=== PATIENT | female | born 2005 | race Caucasian/White ===

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

== ENCOUNTER → 2024-01-09 | Outpatient (CLI) | payer OTHER ==
--- NOTE | 2024-01-09 15:08 | US ---
EXAMINATION TYPE: US transvaginal DATE OF EXAM: 01/09/2024 COMPARISON: NONE CLINICAL INDICATION: Female, 18 years old with history of R10.31 RIGHT LOWER QUADRANT PAIN; pain TECHNIQUE: Transvaginal (TV EXAM MEASUREMENTS: Uterus: 6.6 x 4.5 x 5.3 cm Endometrial Stripe: .6 cm Right Ovary: 3.4 x 1.5 x 1.5 cm Left Ovary: 3.2 x 1.3 x 1.8 cm 1. Uterus: Retroverted wnl 2. Endometrium: Small amount of fluid seen. 3. Right Ovary: 1.6 cm anechoic area seen 4. Left Ovary: wnl 5. Bilateral Adnexa: wnl 6. Posterior cul-de-sac: wnl Retroverted uterus appears within normal limits. Trace amount of fluid identified within the endometr ial canal. Normal endometrial thickness. Dominant follicular cyst within the right ovary. Left ovary is unremarkable. No free fluid in the posterior cul-de-sac. IMPRESSION: No ultrasound evidence for an acute process.
--- NOTE | 2024-01-09 15:46 | US ---
EXAMINATION TYPE: US abdomen complete DATE OF EXAM: 01/09/2024 COMPARISON: NONE CLINICAL INDICATION: Female, 18 years old with history of R10.31 RIGHT LOWER QUADRANT PAIN; pain TECHNIQUE: Multiple sonographic images of the abdomen are obtained. FINDINGS: EXAM MEASUREMENTS: Liver Length: 12 cm Gallbladder Wall: .2 cm CBD: .5 cm Spleen: 11 cm Right Kidney: 9.8 x 4.4 x 4.1 cm Left Kidney: 9.1 x 4.5 x 4.1 cm PMO CONSULTANT NOTES: Pancreas: wnl Liver: wnl Gallbladder: wnl Evidence for sonographic Lam's sign: no CBD: wnl Spleen: wnl Right Kidney: wnl Left Kidney: wnl Upper IVC: wnl Abd Aorta: wnl The liver is homogenous. The intrahepatic portion of the IVC and proximal abdominal aorta are within normal limits. There is no evidence of cholelithiasis. Common bile duct is unremarkable. The visu alized portions of the pancreas are homogenous. The spleen is unremarkable. Kidneys are symmetric a nd free of hydronephrosis. No renal lesions are seen. IMPRESSION: No ultrasound evidence for an acute process.
== END | disposition home or self-care (01) ==
LOC: RADUSWWP 07:15
PROVIDERS: ATTEND Family Medicine
DX: R10.31 Right lower quadrant pain (principal)
CPT/HCPCS: 76700; 76830

== ENCOUNTER 2024-10-09 09:10 | Day surgery (SDC) | payer OTHER ==
[2024-10-08 11:00] VITALS: BMI 24.0
--- NOTE | 2024-10-09 08:41 | P.GSHP ---
History of Present Illness H&P Date: 10/09/24 CHIEF COMPLAINT: GERD HISTORY OF PRESENT ILLNESS: The patient is a 19-year-old female who presents reports gastroesophageal reflux disease. Upper endoscopy was offered for further evaluation and management. PAST MEDICAL HISTORY: Please see list. PAST SURGICAL HISTORY: Please see list. MEDICATIONS: Please see list. ALLERGIES: Please see list. SOCIAL HISTORY: No illicit drug use FAMILY HISTORY: No reports of Crohn disease or ulcerative colitis. REVIEW OF ORGAN SYSTEMS: CONSTITUTIONAL: No reports of fevers or chills. GI: Denies any blood in stools or constipation. PHYSICAL EXAM: VITAL SIGNS: Stable GENERAL: Well-developed and pleasant in no acute distress. HEENT: No scleral icterus. Extraocular movements grossly intact. Moist buccal mucosa. NECK: Supple without lymphadenopathy. CHEST: Unlabored respirations. Equal bilateral excursions. CARDIOVASCULAR: Regular rate and rhythm. Distal 2+ pulses. ABDOMEN: Soft, nondistended. MUSCULOSKELETAL: No clubbing, cyanosis, or edema. ASSESSMENT: 1. Gastroesophageal reflux disease PLAN: 1. Recommend proceeding with an upper endoscopy Past Medical History Past Medical History: GERD/Reflux Additional Past Medical History / Comment(s): heart defects , vascular ring. PT CURRENTLY HAS A MILD SORE THROAT AND COLD SYMPTOMS-INSTRUCTED TO CALL DR. BRUNO History of Any Multi-Drug Resistant Organisms: None Reported Past Surgical History: No Surgical Hx Reported Additional Past Surgical History / Comment(s): heart defects, vascular ring Past Anesthesia/Blood Transfusion Reactions: No Reported Reaction Smoking Status: Never smoker - Past Family History Mother Family Medical History: No Reported History Medications and Allergies Home Medications Medication Instructions Recorded Confirmed Type Omeprazole 40 mg PO DAILY 10/08/24 10/08/24 History Allergies Allergy/AdvReac Type Severity Reaction Status Date / Time No Known Allergies Allergy Verified 10/08/24 10:52
[~2024-10-09 09:10] MED LIST: LIDOCAINE 1% (10MG/ML) FOR IV START INTRADERMA PRN; ONDANSETRON 4 MG/2 ML VIAL IVP PRN
[2024-10-09] MEDS: IV FLUID CONTINUATION 1,000 ML IV ONE (09:26)
[2024-10-09 09:41] VITALS: TEMP 98.2
[2024-10-09] MEDS: LACTATED RINGERS 1,000 ML IV SCH (09:42)
[2024-10-09] MEDS ORDERED: KETAMINE HCL IN 0.9 % NACL 50 MG/5 ML SYRINGE ONE (09:53)
[2024-10-09] MEDS ORDERED: fentaNYL (PF) 50 MCG/ML 2 ML AMP ONE (09:53)
[2024-10-09] MEDS ORDERED: PROPOFOL 10 MG/ML 20 ML VIAL IV ONE (09:53)
[2024-10-09] MEDS ORDERED: LIDOCAINE 1% INJ 10MG/ML (20 ML MDV) ONE (09:53)
[2024-10-09 10:25] VITALS: RESP 16
[2024-10-09 10:39] VITALS: BP 110/68; PULSE 100
--- NOTE | 2024-10-09 10:49 | P.PCN ---
Date of Procedure: 10/09/24 Description of Procedure: PREOPERATIVE DIAGNOSIS: Gastroesophageal reflux disease Dysphagia History of aortic ring congenital anomaly POSTOPERATIVE DIAGNOSIS: Upper esophageal stenosis Gastritis Gastroesophageal reflux disease with erosive esophagitis OPERATION: Esophagogastroduodenoscopy with rigid dilator over the guidewire 54 Fr with dilation Esophagogastroduodenoscopy with cold forceps biopsies stomach/antrum, esophagus, duodenum SURGEON: Glo Tobar MD ANESTHESIA: MAC. INDICATIONS: The patient is a 19-year-old female who presents with a history of gastroesophageal reflux disease and dysphagia. Benefits and risks of the procedure were described. Informed consent was obtained. DESCRIPTION: The patient was brought into the endoscopy suite and laid in the left lateral decubitus position. After a timeout was confirmed, the procedure was initiated. An Olympus gastroscope was passed into the posterior oropharynx where an upper esophageal stenosis was identified. The scope was passed down to the distal esophagus. To address the upper esophageal stenosis, rigid dilator over guidewire was selected. Next using an Moldovan rigid dilator, a guidewire was placed through the gastroscope. Next the scope was withdrawn. A 54-[place] Zealander rigid Moldovan dilator was passed carefully along the posterior oropharynx to 45 cm and left in place for 2-3 minutes stretch. The dilator was withdrawn including the guidewire. The scope was reentered along the posterior oropharynx with no findings of full- thickness tear of the upper esophageal sphincter. Additional findings below. Within the stomach, gastritis without gastric ulcerations were identified along the body of the stomach with cold forceps biopsies obtained. The lower esophageal valve was evaluated with Hill grade 2 lower esophageal valve. LA grade B erosive esophagitis was identified. No full-thickness injury was encountered. The GI tract was desufflated. The patient tolerated the procedure well. FINDINGS: Upper esophageal stenosis dilated 54-New Zealander rigid dilator Diaphragmatic hiatus at 40 cm from the incisors Squamocolumnar junction 40 cm from the incisors. Gastritis along the gastric body and fundus cold forceps biopsies obtained No acute gastric ulcerations identified. Duodenum with mild duodenitis with biopsies obtained LA grade B erosive esophagitis with biopsies obtained Hill grade 2 lower esophageal valve. RECOMMENDATIONS: Omeprazole 40 mg daily Upper endoscopy as needed Plan - Discharge Summary Discharge Rx Participant: No New Discharge Prescriptions: Continue Omeprazole 40 mg PO DAILY Discharge Medication List Omeprazole 40 mg PO DAILY 10/08/24 [History] Follow up Appointment(s)/Referral(s): Glo Tobar MD [STAFF PHYSICIAN] - 10/21/24 4:30 pm Patient Instructions/Handouts: Esophageal Dilation (DC) Activity/Diet/Wound Care/Special Instructions: Salt water gargle twice daily. Soft diet today. Discharge Disposition: HOME SELF-CARE
--- NOTE | 2024-10-09 14:30 | P.PN ---
Progress Note - Text Progress Note Date: 10/09/24 Patient contacted the bariatric center regarding increased trouble with swallowing. Patient's family advised to come to the emergency room if symptoms progress as discussed prior to bariatric staff.
--- NOTE | 2024-10-09 14:37 | P.PN ---
Progress Note - Text Progress Note Date: 10/09/24 Contacted patient's phone which went to [employer]. Contacted patient's mother who reports that her daughter is very anxious. Patient reports increased swelling as the anesthesia has resolved. I have discussed antibiotics oral liquid form including oral liquid pain medication such as Motrin Tylenol. In the interim, mother advised to encourage sleeping on pillows elevated and avoiding laying flat to minimize any further increase in swelling. Cold beverages including ice advised to also minimize any underlying swelling of the left tonsillar region.
--- NOTE | 2024-10-09 17:44 | P.PN ---
Progress Note - Text Progress Note Date: 10/09/24 Called both patient and mother cell phone for follow-up regarding new prescriptions of liquid amoxicillin, Tylenol, ibuprofen. Telephone message left for sitting upright to minimize swelling. Family advised if symptoms are worse to go to emergency room for further treatment.
--- NOTE | 2024-10-10 12:15 | P.PN ---
Progress Note - Text Progress Note Date: 10/10/24 Attempted to call both patient and her mother. Both mobile numbers went to [email or web address]. I personally called [facility] pharmacy and clarified Augmentin length for 10 days.
== END 2024-10-09 11:36 | disposition home or self-care (01) ==
LOC: ORWHC2ENDO 09:10
PROVIDERS: ATTEND Surgery Plastic and Reconstructive Surgery
DX: K29.50 Unspecified chronic gastritis without bleeding (principal); K21.00 Gastro-esophageal reflux disease with esophagitis, without bleeding; K22.2 Esophageal obstruction; J44.9 Chronic obstructive pulmonary disease, unspecified; F17.290 Nicotine dependence, other tobacco product, uncomplicated; Z79.899 Other long term (current) drug therapy
CPT/HCPCS: 81025; 88305; 43239; 43248; J2003; J3010; J2704

== ENCOUNTER → 2025-01-15 | Outpatient (CLI) | payer OTHER ==
--- NOTE | 2025-01-15 15:31 | US ---
EXAMINATION TYPE: US pelvis complete transvag DATE OF EXAM: 01/15/2025 COMPARISON: US transvaginal 01/09/2024 CLINICAL INDICATION: Female, 19 years old with history of R10.2 PELVIC PAIN; Pt states pelvic pain, m ore on left side TECHNIQUE: Transvaginal (TV) and Transabdominal (TA) . Transabdominal grayscale sonographic images of the pelvis were acquired. Transvaginal sonographic im ages were medically necessary to better assess the following anatomy: Ovaries Doppler imaging: Not performed. FINDINGS: Date of LMP: 12/23/2024 EXAM MEASUREMENTS: Uterus: 8.5 x 4.3 x 4.9 cm Endometrial Stripe: 0.9 cm Right Ovary: 4.6 x 4.4 x 3.3 cm Left Ovary: 4.1 x 2.8 x 2.5 cm 1. Uterus: Retroverted wnl 2. Endometrium: wnl 3. Right Ovary: Cystic lesion with septations= 3.7 x 3.2 x 3.7 cm 4. Left Ovary: Cystic lesion with septations= 3.0 x 2.1 x 2.1 cm 5. Bilateral Adnexa: wnl 6. Posterior cul-de-sac: wnl Retroverted uterus without focal lesion. Endometrium is within normal limits. Right ovarian thin-wall ed cyst with some thin septations. Left ovarian cyst with some thin septations. No distinct solid com ponent identified. No free fluid. IMPRESSION: Bilateral ovarian cystic lesions with thin septations. No distinct solid component. Most likely benig n. Recommend follow-up ultrasound in 6 months. [facility], , 01/15/2025 3:29 PM
== END | disposition home or self-care (01) ==
LOC: RADUSWWP 14:23
PROVIDERS: ATTEND Family Medicine
DX: N83.201 Unspecified ovarian cyst, right side (principal); N83.202 Unspecified ovarian cyst, left side
CPT/HCPCS: 76830; 76856